=== PATIENT | female | born 1985 | race Hispanic/Latino ===

== ENCOUNTER 2020-08-14 14:32 | Emergency (ER) | payer SELFPAY ==
[~2020-08-14] VITALS: Ht 165.1 cm; Wt 99.8 kg
[2020-08-14] MEDS ORDERED: ACETAMINOPHEN 325 MG TAB PO ONE (15:00)
[2020-08-14] MEDS ORDERED: ONDANSETRON HCL 4 MG ORAL DISINTEGRATING TAB PO ONE (15:00)
[2020-08-14] MEDS ORDERED: IBUPROFEN 200 MG TAB PO ONE (15:00)
[2020-08-14] MEDS ORDERED: ACETAMINOPHEN 325 MG TAB ONE (15:02)
[2020-08-14] MEDS ORDERED: ONDANSETRON HCL 4 MG ORAL DISINTEGRATING TAB ONE (15:02)
[2020-08-14] MEDS ORDERED: IBUPROFEN 600 MG TAB ONE (15:02)
[2020-08-14] MEDS ORDERED: ACETAMINOPHEN500 MG PO (15:03)
[2020-08-14] MEDS ORDERED: ULTRAM 50MG50 MG PO (15:03)
[2020-08-14] MEDS ORDERED: IBUPROFEN IB200 MG PO (15:03)
[2020-08-14] MEDS ORDERED: TETANUS/DIPHTHERIA TOX ADULT 0.5 ML SYR ONE (15:07)
[2020-08-14] MEDS ORDERED: TETANUS/DIPHTHERIA TOX ADULT 0.5 ML SYR IM STA (15:21)
[2020-08-14 16:08] VITALS: BP 142/80
== END 2020-08-14 16:24 | disposition home or self-care (01) ==
LOC: FSED 14:50
DX: S93.401A Sprain of unspecified ligament of right ankle, initial encounter (principal); S80.212A Abrasion, left knee, initial encounter; W01.0XXA Fall on same level from slipping, tripping and stumbling without subsequent striking against object, initial encounter; Y93.01 Activity, walking, marching and hiking; Y92.008 Other place in unspecified non-institutional (private) residence as the place of occurrence of the external cause
CPT/HCPCS: 29515; 73560; 73600; 90471; 90714; 96372; 99284; Q0162